=== PATIENT | female | born 1960 | race Caucasian/White ===

== ENCOUNTER 2018-04-27 19:21 | Inpatient (IN) | payer MEDICAID ==
[~2018-04-27] VITALS: Ht 160 cm; Wt 83.5 kg
[2018-04-27] MEDS ORDERED: LORazepam 2 mg/ml vial IV ONE (20:00)
[2018-04-27] MEDS ORDERED: famotidine/PF 10 mg/ml inj IV ONE (20:00)
[2018-04-27] MEDS ORDERED: normal saline 1000ML IV soln IVB ONE (20:00)
[2018-04-27] MEDS ORDERED: ondansetron/PF 4mg/2ml inj IV ONE (20:00)
[2018-04-27 20:42] LABS: BASOPHILS % (AUTO) 0.1 % (0-1); EOSINOPHILS % (AUTO) 0 % (0-6); HEMATOCRIT 43.6 % (35.0-45.0); HEMOGLOBIN 15.3 g/dl (12.0-16.0); LYMPHOCYTES # (AUTO) 0.9 X10'3 (1.1-4.8); LYMPHOCYTES % (AUTO) 3.3 % (21-51); MEAN CORPUSCULAR HEMOGLOBIN 31.5 PG (27.0-31.0); MEAN CORPUSCULAR HGB CONC 35.2 % (33.0-36.5); MEAN CORPUSCULAR VOLUME 89.5 FL (78-98); MEAN PLATELET VOLUME 7.3 FL (7.4-10.4); MONOCYTES # (AUTO) 1.5 X10'3 (0-0.9); MONOCYTES % (AUTO) 5.6 % (2-12); NEUTROPHILS # (AUTO) 24.6 X10'3 (1.8-7.7); PLATELET COUNT 246 X10'3 (140-440); RED BLOOD COUNT 4.87 X10'6 (4.20-5.60); RED CELL DISTRIBUTION WIDTH 12.6 % (11.5-14.5)
[2018-04-27] MEDS ORDERED: metroNIDAZOLE-Flagyl 500mg/NS 100 ML IV STA (20:54)
[2018-04-27] MEDS ORDERED: ciprofloxacin lact 400MG/200ML 200 ML IV SCH (20:55)
[2018-04-27] MEDS ORDERED: morphine 4 MG/ML inj SYRINge IV ONE (20:55)
[2018-04-27] MEDS ORDERED: normal saline 1000ML IV soln IV ONE (21:05)
[2018-04-27] MEDS ORDERED: piperacillin/tazo 3.375gm/50ml 50 ML IV SCH (21:10)
[2018-04-27 21:36] LABS: ALANINE AMINOTRANSFERASE 23 U/L (12-78); ALBUMIN/GLOBULIN RATIO 0.8 (1.1-1.5); ALKALINE PHOSPHATASE 95 IU/L (46-116); ANION GAP 11 (8-16); ASPARTATE AMINO TRANSFERASE 26 U/L (10-37); BILIRUBIN,TOTAL 0.9 MG/DL (0.1-1.0); BLOOD UREA NITROGEN 8 MG/DL (7-18); BUN/CREATININE RATIO 10.8 (6.6-38.0); CALCIUM 8.6 MG/DL (8.5-10.1); CHLORIDE 98 MMOL/L (99-107); CREATININE 0.74 MG/DL (0.40-0.90); GLUCOSE 124 MG/DL (70-104); POTASSIUM 3.4 MMOL/L (3.5-5.1); SODIUM 134 MMOL/L (135-145); TOTAL CARBON DIOXIDE 24.7 MMOL/L (24-32); TOTAL PROTEIN 6.9 G/DL (6.4-8.2); eGFR 81 ML/MIN
[2018-04-27 21:41] LABS: LIPASE 59 U/L (73-393); TROPONIN I < 0.04 NG/ML (0.0-0.05)
[2018-04-27 21:54] LABS: PLATELET ESTIMATE NORMAL; TOTAL CELLS COUNTED 100
[2018-04-27] MEDS ORDERED: CADD PCA waste documentation MC PRN (22:15)
[2018-04-27] MEDS ORDERED: naloxone 0.4 mg/ml inj IV PRN (22:15)
[2018-04-27] MEDS: normal saline 1000ml 1,000 ML IV SCH (22:20)
[2018-04-27] MEDS ORDERED: ALBU18HF2 INH (22:26)
[2018-04-27] MEDS ORDERED: ESCI10TA PO (22:26)
[2018-04-27] MEDS ORDERED: LEVO100T PO (22:26)
[2018-04-27] MEDS ORDERED: piperacillin/tazo 3.375gm/50ml 50 ML IV ONE ×2 (23:05→23:40)
[2018-04-27 23:11] LABS: CLARITY,URINE CLEAR (Clear); COLOR,URINE YELLOW (Yellow); GLUCOSE, URINE NEGATIVE (Neg); KETONES,URINE >=80 mg/dl (Neg); LEUKOCYTE ESTERASE ,URINE TRACE (Neg); NITRITES, URINE NEGATIVE (Neg); OCCULT BLOOD,URINE SMALL (Neg); PROTEIN,URINE 30 mg/dl (Neg)
[2018-04-27 23:13] LABS: UA COLLECTION TYPE CLN CATCH MIDSTREAM
[2018-04-27 23:18] LABS: BACTERIA,URINE 1+ /HPF (Neg); MUCUS STRANDS MODERATE /LPF (Neg); SQUAMOUS EPITHELIAL CELL,UR MODERATE /LPF (FEW)
[2018-04-27] MEDS ORDERED: HYDROmorphone 1 mg/ml syringe IV ONE (23:20)
[2018-04-27] MEDS: HYDROmorphone/NS 1 mg/ml CADD 50 ML IV SCH (23:54)
[2018-04-28] VITALS (20 sets, daily range): BP systolic 102–167; BP diastolic 56–81
[2018-04-28] MEDS: HYDROmorphone/NS 1 mg/ml CADD 50 ML IV SCH ×11 (01:00→20:50)
[2018-04-28 06:16] LABS: BASOPHILS % (AUTO) 0 % (0-1); EOSINOPHILS % (AUTO) 0 % (0-6); HEMATOCRIT 41.4 % (35.0-45.0); HEMOGLOBIN 14.2 g/dl (12.0-16.0); MEAN CORPUSCULAR HEMOGLOBIN 31.5 PG (27.0-31.0); MEAN CORPUSCULAR HGB CONC 34.4 % (33.0-36.5); MEAN CORPUSCULAR VOLUME 91.6 FL (78-98); MEAN PLATELET VOLUME 7.6 FL (7.4-10.4); MONOCYTES # (AUTO) 1.5 X10'3 (0-0.9); MONOCYTES % (AUTO) 6.4 % (2-12); NEUTROPHILS # (AUTO) 21.5 X10'3 (1.8-7.7); NEUTROPHILS % (AUTO) 89.6 % (42-75); PLATELET COUNT 215 X10'3 (140-440); RED BLOOD COUNT 4.52 X10'6 (4.20-5.60); RED CELL DISTRIBUTION WIDTH 12.7 % (11.5-14.5)
[2018-04-28 06:36] LABS: CHLORIDE 101 MMOL/L (99-107); GLUCOSE 95 MG/DL (70-104); POTASSIUM 3.4 MMOL/L (3.5-5.1); SODIUM 136 MMOL/L (135-145); TOTAL CARBON DIOXIDE 24.6 MMOL/L (24-32)
[2018-04-28 06:37] LABS: ALANINE AMINOTRANSFERASE 27 U/L (12-78); ALBUMIN 2.6 G/DL (3.4-5.0); ALBUMIN/GLOBULIN RATIO 0.7 (1.1-1.5); ALKALINE PHOSPHATASE 114 IU/L (46-116); ANION GAP 10 (8-16); ASPARTATE AMINO TRANSFERASE 30 U/L (10-37); BILIRUBIN,TOTAL 0.9 MG/DL (0.1-1.0); BLOOD UREA NITROGEN 7 MG/DL (7-18); BUN/CREATININE RATIO 10.4 (6.6-38.0); CALCIUM 8.4 MG/DL (8.5-10.1); CREATININE 0.67 MG/DL (0.40-0.90); TOTAL PROTEIN 6.3 G/DL (6.4-8.2); eGFR > 90 ML/MIN
[2018-04-28] MEDS: heparin, porcine 5000 units/ml vial SQ SCH ×2 (06:49→20:56)
[2018-04-28 07:19] LABS: PLATELET ESTIMATE NORMAL; TOTAL CELLS COUNTED 100
[2018-04-28] MEDS: piperacillin/tazo 3.375gm/50ml 50 ML IV SCH ×3 (08:14→23:22)
[2018-04-28] MEDS: normal saline 1000ml 1,000 ML IV SCH ×3 (08:14→21:28)
[2018-04-28] MEDS ORDERED: potassium Cl 40MEQ/NS 500ml 500 ML IV PRN ×2 (09:20)
[2018-04-28] MEDS ORDERED: magnesium Cl slow-release 64mg tablet PO PRN (09:20)
[2018-04-28] MEDS ORDERED: potassium Cl 20 mEq SR tablet PO PRN ×2 (09:20)
[2018-04-28] MEDS ORDERED: magnesium 4gm in 100ml NS 100 ML IV PRN (09:20)
[2018-04-28] MEDS ORDERED: magnesium 2GM in 50ml NS 50 ML IV PRN (09:20)
[2018-04-28] MEDS ORDERED: non-formulary drug (Albuterol Sulfate (Ventolin Hfa) 2 PUFFS) INH SCH (15:40)
[2018-04-28] MEDS ORDERED: ceFAZolin 1000mg inj ONE (15:45)
[2018-04-28] MEDS ORDERED: bupivacaine (with preservative) 5 mg/ml inj. 50ml ONE (15:45)
[2018-04-28] MEDS ORDERED: midazolam 2 mg/2 ml injection ONE (17:00)
[2018-04-28] MEDS ORDERED: fentaNYL /PF 50mcg/ml 5ml ampule ONE (17:00)
[2018-04-28] MEDS ORDERED: LIDOcaine 2% (20mg/ml) 5ml vial ONE (17:12)
[2018-04-28] MEDS ORDERED: propofol inj 20 ML IV ONE (17:12)
[2018-04-28] MEDS ORDERED: succinylcholine 20mg/ml inj IV ONE (17:12)
[2018-04-28] MEDS ORDERED: ringers solution, lacted 1,000 ML IV SCH (17:50)
[2018-04-28] MEDS ORDERED: meperidine/PF 25mg/ml syringe IV PRN ×3 (17:50)
[2018-04-28] MEDS ORDERED: ondansetron/PF 4mg/2ml inj IV PRN (17:50)
[2018-04-28] MEDS ORDERED: morphine 4 MG/ML inj SYRINge IV PRN ×2 (17:50)
[2018-04-28] MEDS ORDERED: proCHLORperazine 10 MG/2 ml inj IV PRN (17:50)
[2018-04-28] MEDS ORDERED: glycopyrrolate 0.2mg/ml inj ONE (18:19)
[2018-04-28] MEDS ORDERED: neostigmine methylsulfate 1 MG/ML 10ml vial ONE (18:19)
[2018-04-28] MEDS ORDERED: ondansetron/PF 4mg/2ml inj ONE (18:20)
[2018-04-28] MEDS ORDERED: ipratropium/albuterol 3ml nebule NEB STA (19:19)
[2018-04-28] MEDS ORDERED: HYDROmorphone 1 mg/ml syringe IV PRN ×2 (20:55)
[2018-04-28] MEDS ORDERED: HYDROcodone/acetaminophen 5mg/325mg tablet PO PRN (20:55)
[2018-04-28] MEDS: albuterol 2.5 MG/3 ML nebule NEB SCH (21:00)
[2018-04-28] MEDS: HYDROmorphone 1 mg/ml syringe IV PRN (21:27)
[2018-04-29] VITALS: BP 110/61
[2018-04-29] MEDS: HYDROmorphone 1 mg/ml syringe IV PRN ×3 (01:28→23:27)
[2018-04-29] MEDS: albuterol 2.5 MG/3 ML nebule NEB SCH ×2 (03:00→09:14)
[2018-04-29] MEDS ORDERED: HYDROmorphone inj. 0.5 MG/0.5 ML DISP.SYRIN IV PRN (04:25)
[2018-04-29] MEDS ORDERED: HYDROmorphone 1 mg/ml syringe IV ONE (04:25)
[2018-04-29] MEDS ORDERED: HYDROmorphone inj. 0.5 MG/0.5 ML DISP.SYRIN IV ONE (04:45)
[2018-04-29] MEDS ORDERED: HYDROmorphone 1 mg/ml syringe ONE ×2 (04:52→06:02)
[2018-04-29] MEDS: HYDROcodone/acetaminophen 10/325mg tab PO PRN (05:10)
[2018-04-29 06:11] LABS: BASOPHILS % (AUTO) 0 % (0-1); EOSINOPHILS % (AUTO) 0 % (0-6); HEMATOCRIT 35.9 % (35.0-45.0); HEMOGLOBIN 12.3 g/dl (12.0-16.0); LYMPHOCYTES # (AUTO) 0.4 X10'3 (1.1-4.8); LYMPHOCYTES % (AUTO) 2.5 % (21-51); MEAN CORPUSCULAR HEMOGLOBIN 31.6 PG (27.0-31.0); MEAN CORPUSCULAR HGB CONC 34.3 % (33.0-36.5); MEAN CORPUSCULAR VOLUME 92.2 FL (78-98); MEAN PLATELET VOLUME 7.7 FL (7.4-10.4); MONOCYTES # (AUTO) 0.8 X10'3 (0-0.9); MONOCYTES % (AUTO) 4.6 % (2-12); NEUTROPHILS # (AUTO) 16.1 X10'3 (1.8-7.7); NEUTROPHILS % (AUTO) 92.9 % (42-75); PLATELET COUNT 193 X10'3 (140-440); RED CELL DISTRIBUTION WIDTH 13.3 % (11.5-14.5); WHITE BLOOD COUNT 17.3 X10'3 (4.5-11.0)
[2018-04-29 06:24] LABS: ALANINE AMINOTRANSFERASE 54 U/L (12-78); ALBUMIN 1.9 G/DL (3.4-5.0); ALBUMIN/GLOBULIN RATIO 0.5 (1.1-1.5); ALKALINE PHOSPHATASE 101 IU/L (46-116); ANION GAP 8 (8-16); ASPARTATE AMINO TRANSFERASE 76 U/L (10-37); BILIRUBIN,TOTAL 0.8 MG/DL (0.1-1.0); BLOOD UREA NITROGEN 7 MG/DL (7-18); BUN/CREATININE RATIO 10.6 (6.6-38.0); CALCIUM 8.4 MG/DL (8.5-10.1); CHLORIDE 107 MMOL/L (99-107); CREATININE 0.66 MG/DL (0.40-0.90); GLUCOSE 119 MG/DL (70-104); POTASSIUM 3.6 MMOL/L (3.5-5.1); SODIUM 141 MMOL/L (135-145); TOTAL CARBON DIOXIDE 26.1 MMOL/L (24-32); TOTAL PROTEIN 5.6 G/DL (6.4-8.2); eGFR > 90 ML/MIN
[2018-04-29 08:00] VITALS: BP 118/57
[2018-04-29] MEDS: citalopram 20mg tablet PO SCH (08:14)
[2018-04-29] MEDS: levoTHYROXINE 100mcg tablet PO SCH (08:14)
[2018-04-29] MEDS: heparin, porcine 5000 units/ml vial SQ SCH ×2 (08:15→19:18)
[2018-04-29] MEDS: piperacillin/tazo 3.375gm/50ml 50 ML IV SCH ×3 (08:15→23:27)
[2018-04-29] MEDS: normal saline 1000ml 1,000 ML IV SCH ×2 (08:16→19:18)
[2018-04-29 11:52] VITALS: BP 132/72
[2018-04-29] MEDS ORDERED: albuterol 2.5 MG/3 ML nebule NEB SCH (15:00)
[2018-04-29 18:00] VITALS: BP 152/69
[2018-04-29] MEDS ORDERED: acetaminophen 325mg tablet PO PRN (18:40)
[2018-04-30] VITALS: BP 128/59
[2018-04-30] MEDS: normal saline 1000ml 1,000 ML IV SCH (03:49)
[2018-04-30] MEDS: HYDROmorphone 1 mg/ml syringe IV PRN (03:49)
[2018-04-30 04:08] LABS: BASOPHILS % (AUTO) 0.1 % (0-1); EOSINOPHILS # (AUTO) 0.1 X10'3 (0-0.9); EOSINOPHILS % (AUTO) 0.6 % (0-6); HEMATOCRIT 33.8 % (35.0-45.0); HEMOGLOBIN 11.4 g/dl (12.0-16.0); LYMPHOCYTES # (AUTO) 1.2 X10'3 (1.1-4.8); LYMPHOCYTES % (AUTO) 11.3 % (21-51); MEAN CORPUSCULAR HEMOGLOBIN 30.9 PG (27.0-31.0); MEAN CORPUSCULAR HGB CONC 33.7 % (33.0-36.5); MEAN CORPUSCULAR VOLUME 91.8 FL (78-98); MEAN PLATELET VOLUME 7.5 FL (7.4-10.4); MONOCYTES # (AUTO) 0.6 X10'3 (0-0.9); MONOCYTES % (AUTO) 5.7 % (2-12); NEUTROPHILS # (AUTO) 8.5 X10'3 (1.8-7.7); NEUTROPHILS % (AUTO) 82.3 % (42-75); PLATELET COUNT 216 X10'3 (140-440); RED BLOOD COUNT 3.68 X10'6 (4.20-5.60); WHITE BLOOD COUNT 10.4 X10'3 (4.5-11.0)
[2018-04-30 04:47] LABS: ALANINE AMINOTRANSFERASE 51 U/L (12-78); ALBUMIN 1.8 G/DL (3.4-5.0); ALBUMIN/GLOBULIN RATIO 0.5 (1.1-1.5); ALKALINE PHOSPHATASE 109 IU/L (46-116); ANION GAP 5 (8-16); ASPARTATE AMINO TRANSFERASE 51 U/L (10-37); BILIRUBIN,TOTAL 0.5 MG/DL (0.1-1.0); BLOOD UREA NITROGEN 7 MG/DL (7-18); BUN/CREATININE RATIO 10.9 (6.6-38.0); CALCIUM 8.3 MG/DL (8.5-10.1); CHLORIDE 109 MMOL/L (99-107); CREATININE 0.64 MG/DL (0.40-0.90); GLUCOSE 100 MG/DL (70-104); POTASSIUM 3.1 MMOL/L (3.5-5.1); SODIUM 141 MMOL/L (135-145); TOTAL CARBON DIOXIDE 27.1 MMOL/L (24-32); TOTAL PROTEIN 5.7 G/DL (6.4-8.2); eGFR > 90 ML/MIN
[2018-04-30] MEDS ORDERED: HYDROmorphone 1 mg/ml syringe IV ONE (05:45)
[2018-04-30] MEDS ORDERED: normal saline 1000ml 1,000 ML IV SCH (05:45)
[2018-04-30 07:00] VITALS: BP 130/64
[2018-04-30] MEDS: citalopram 20mg tablet PO SCH (07:32)
[2018-04-30] MEDS: piperacillin/tazo 3.375gm/50ml 50 ML IV SCH (07:32)
[2018-04-30] MEDS: levoTHYROXINE 100mcg tablet PO SCH (07:32)
[2018-04-30] MEDS: heparin, porcine 5000 units/ml vial SQ SCH (07:34)
[2018-04-30] MEDS ORDERED: potassium chloride 10mEq ER tablet PO SCH (08:00)
[2018-04-30] MEDS: HYDROcodone/acetaminophen 10/325mg tab PO PRN (09:35)
[2018-04-30] MEDS ORDERED: albuterol 2.5 MG/3 ML nebule NEB PRN (15:00)
== END 2018-04-30 11:35 | disposition home or self-care (01) | DRG 263 ==
LOC: ER 19:21 → ED HOLD 22:04 → SUR 3N 23:05
PROVIDERS: ADMIT Internal Medicine; ATTEND Internal Medicine
PROC: 0FT44ZZ Resection of Gallbladder, Percutaneous Endoscopic Approach (ICD-10-PCS; principal; 2018-04-28 16:57)
DX: K81.0 Acute cholecystitis (principal); E03.9 Hypothyroidism, unspecified; J40 Bronchitis, not specified as acute or chronic; Z88.2 Allergy status to sulfonamides; Z79.899 Other long term (current) drug therapy
CPT/HCPCS: 36415; 71045; 74176; 80053; 81001; 83605; 83690; 84484; 85025; 87040; 87070; 87088; 93005; 94640; 94760; A6212; A6213; A6251; A6449; A7000; C1758; J0330; J0690; J0744; J1170; J1644; J2001; J2060; J2175; J2250; J2270; J2405; J2543; J2704; J2710; J3010; J3480; J3490; J7030; J7120

== ENCOUNTER 2023-04-14 12:26 | Emergency (ER) | payer MEDICAID ==
[~2023-04-14] VITALS: Ht 160 cm; Wt 104.5 kg
[~2023-04-14 12:26] MED LIST: ALBU18HF2 INH; ESCI10TA PO; LEVO100T PO
[2023-04-14 12:34] VITALS: BP 198/97
[2023-04-14] MEDS ORDERED: GUAI400T92 PO (13:34)
[2023-04-14] MEDS ORDERED: AMOX-117 PO (13:34)
[2023-04-14] MEDS ORDERED: CETI10TA15 PO (13:50)
== END 2023-04-14 13:57 | disposition home or self-care (01) ==
LOC: ER 12:28
DX: J20.9 Acute bronchitis, unspecified (principal); J02.9 Acute pharyngitis, unspecified; J44.9 Chronic obstructive pulmonary disease, unspecified; Z88.2 Allergy status to sulfonamides; Z87.891 Personal history of nicotine dependence
CPT/HCPCS: 71045; 99283

== ENCOUNTER → 2024-03-06 | Outpatient (CLI) | payer MEDICAID ==
[~2024-03-06] MED LIST changes: +CETI10TA15 PO; +GUAI400T92 PO
== END | disposition home or self-care (01) ==
LOC: RAD 15:14
PROVIDERS: ATTEND Internal Medicine
DX: M25.511 Pain in right shoulder (principal)
CPT/HCPCS: 73030

== ENCOUNTER 2024-05-19 10:31 | Outpatient (CLI) | payer MEDICAID | END 2024-05-19 23:59 | disposition home or self-care (01) | LOC: MRI 10:31 | PROVIDERS: ATTEND Internal Medicine | DX: S43.491A Other sprain of right shoulder joint, initial encounter (principal); S41.011A Laceration without foreign body of right shoulder, initial encounter; M19.011 Primary osteoarthritis, right shoulder; M75.81 Other shoulder lesions, right shoulder; M75.80 Other shoulder lesions, unspecified shoulder; M75.51 Bursitis of right shoulder; M25.511 Pain in right shoulder; X58.XXXA Exposure to other specified factors, initial encounter; Y93.89 Activity, other specified; Y92.89 Other specified places as the place of occurrence of the external cause; Y99.8 Other external cause status | CPT/HCPCS: 73221 ==

== ENCOUNTER → 2024-06-21 | Outpatient (CLI) | payer MEDICAID ==
[2024-06-21 08:13] VITALS: PULSE 71; RESP 16; O2SAT 97
== END | disposition home or self-care (01) ==
LOC: RT 07:29
PROVIDERS: ATTEND Internal Medicine
DX: R94.2 Abnormal results of pulmonary function studies (principal); J44.9 Chronic obstructive pulmonary disease, unspecified
CPT/HCPCS: 94010; 94760

== ENCOUNTER 2025-03-07 06:10 | Outpatient (CLI) | payer MEDICAID ==
[2025-03-07] MEDS ORDERED: GADOTERATE MEGLUMINE 7.5 MMOL/15 ML VIAL IV ONE (06:43)
[2025-03-07] MEDS ORDERED: LIDOcaine 1% 30ml preserv. free vial ONE (06:43)
[2025-03-07] MEDS ORDERED: LIDOcaine 1%/PF 5ML 10 MG/ML VIAL ONE (06:43)
[2025-03-07] MEDS ORDERED: iohexol 300 MG/1 ML 50ml polymer ONE (06:43)
== END 2025-03-07 23:59 | disposition home or self-care (01) ==
LOC: RAD 06:10
PROVIDERS: ATTEND Family Medicine Sports Medicine
DX: M25.511 Pain in right shoulder (principal); M75.51 Bursitis of right shoulder; S43.491A Other sprain of right shoulder joint, initial encounter; X58.XXXA Exposure to other specified factors, initial encounter; Y93.89 Activity, other specified; Y92.89 Other specified places as the place of occurrence of the external cause; Y99.8 Other external cause status; M75.81 Other shoulder lesions, right shoulder
CPT/HCPCS: 23350; 73222; 77002; A9575; J2003; J3490; Q9967